=== PATIENT | female | born 1995 | race African-American/Black ===

== ENCOUNTER 2023-05-17 11:48 | Emergency (ER) | payer SELFPAY ==
[2023-05-17 13:13] LABS: #Eosinphils 0.1 10x3/uL (0.0-0.5); #Monocytes 0.4 10x3/uL (0.0-1.1); #Neutrophils 2.7 10x3/uL (1.5-8.4); %Basophils 0.2 % (0.0-2.0); %Eosinophils 1.7 % (0.0-6.0); %Lymphocytes 32.4 % (18.0-47.0); %Monocytes 9.2 % (0.0-10.0); %Neutrophils 56.3 % (40.0-75.0); Hemoglobin 10.4 g/dL (12.0-15.5); Mean Corpuscular Hemoglobin 22.8 pg (27.0-33.0); Mean Corpuscular Volume 75.9 fl (81.6-98.3); Mean Platelet Volume 11.5 fl (7.4-10.4); Platelet Count 255 10x3/uL (150-450); Red Blood Cell (RBC) Count 4.57 10x6/uL (3.90-5.03); White Blood Cell (WBC) Count 4.8 10x3/uL (3.5-10.5)
[2023-05-17 13:24] LABS: ALT (SGPT) 23 U/L (8-55); AST (SGOT) 18 U/L (5-34); Albumin 3.7 g/dL (3.5-5.0); Alkaline Phosphatase 47 U/L (40-110); Anion Gap 10 mmol/L (10-20); BUN (Urea Nitrogen) 8 mg/dL (7.0-18.7); Bilirubin, Total 0.5 mg/dL (0.2-1.2); Calc. Creatinine Clearance 0 mL/min (70-130); Calcium 8.5 mg/dL (7.8-10.44); Carbon Dioxide 23 mmol/L (22-29); Chloride 109 mmol/L (98-107); Estimated GFR 120; Glucose 103 mg/dL (70-105); Potassium 3.6 mmol/L (3.5-5.1); Protein, Total 5.7 g/dL (6.0-8.3); Sodium 138 mmol/L (136-145)
[2023-05-17] MEDS ORDERED: Ketorolac Tromethamine 30 MG/ML VIAL ONE (13:55)
== END 2023-05-17 14:04 | disposition home or self-care (01) ==
LOC: CSHERS 11:48
DX: R60.9 Edema, unspecified (principal)
CPT/HCPCS: 80053; 85025; 93970; 96372; J1885

== ENCOUNTER 2023-07-01 12:33 | Emergency (ER) | payer OTHER, SELFPAY ==
[2023-07-01 13:44] LABS: SARS-CoV-2 NAA Rapid Test DETECTED (NotDetected)
== END 2023-07-01 16:00 | disposition home or self-care (01) ==
LOC: CSHERS 12:33
DX: U07.1 COVID-19 (principal); J06.9 Acute upper respiratory infection, unspecified
CPT/HCPCS: 99283

== ENCOUNTER 2024-09-10 07:52 | Emergency (ER) | payer OTHER, SELFPAY ==
[2024-09-10 08:36] LABS: Bilirubin Neg (Negative); Blood, Urine 50 (Negative); Clarity Clear (Clear); Glucose, Urine (Dipstick) Normal (Negative); Ketone, Urine Negative (Negative); Leukocyte Negative (Negative); Nitrite Negative (Negative); Protein, Urine (Dipstick) 30 mg/dl (Neg-Trace); Specific Gravity, Urine 1.025 (1.005-1.030)
[2024-09-10 08:39] LABS: Pregnancy Test - Urine (BHCG) Negative (Negative); Pregu Control Background? CLEAR/WHITE (CLR/WHITE); Pregu Control Bar Appear? YES (CONTROL BAR); Specific Gravity 1.025 (1.002-1.036)
[2024-09-10 09:33] LABS: Bacteria/HPF 2+ HPF (None Seen); CAUTI Indications for Culture Pelvic or flank pain; RBC/HPF 0-3 HPF (0-3); Squamous Epithelial Greater than 50 HPF (0-3); WBC/HPF 0-3 HPF (0-3)
[2024-09-10 09:34] LABS: Urine Culture Reflex No No
== END 2024-09-10 09:23 | disposition home or self-care (01) ==
LOC: CSHERS 07:52
DX: N93.9 Abnormal uterine and vaginal bleeding, unspecified (principal)
CPT/HCPCS: 81001; 81025; 99284

== ENCOUNTER 2024-10-18 16:57 | Emergency (ER) | payer SELFPAY | END 2024-10-18 19:22 | disposition home or self-care (01) | LOC: CSHERS 16:57 | DX: J06.9 Acute upper respiratory infection, unspecified (principal) | CPT/HCPCS: 87428; 99283 ==

== ENCOUNTER 2024-11-26 16:51 | Emergency (ER) | payer SELFPAY | END 2024-11-26 19:45 | disposition home or self-care (01) | LOC: CSHERS 16:51 | DX: B34.9 Viral infection, unspecified (principal) | CPT/HCPCS: 87428; 99283 ==

== ENCOUNTER 2025-07-16 09:38 | Emergency (ER) | payer SELFPAY | END 2025-07-16 10:16 | disposition home or self-care (01) | LOC: CSHERS 09:38 | DX: B34.9 Viral infection, unspecified (principal) | CPT/HCPCS: 99283 ==